=== PATIENT | male | born 1940 | race Caucasian/White ===

== ENCOUNTER 2020-05-31 16:53 | Emergency (ER) | payer MEDICARE ==
[2020-05-31 17:07] VITALS: RESP 18; TEMP 98.2
--- NOTE | 2020-05-31 17:15 | ED ---
Upper Extremity HPI - General Chief Complaint: Extremity Injury, Upper Stated Complaint: L Shoulder Dislocation Time Seen by Provider: 05/31/20 17:07 Source: patient, RN notes reviewed Mode of arrival: ambulatory Limitations: no limitations - History of Present Illness Initial Comments: 80-year-old male presents emergency Department with chief complaint left shoulder pain. Patient states he was removing his shirt states he felt a pop. Patient states she's been unable to move it secondary to pain ever since. Patient had no prior surgeries no major issues with the shoulder in past. Patient states IS LOCATED AT HIS JOINT. NO HEADACHE NO DIZZINESS NO PARESTHESIAS NO CHEST PAIN OR SHORTNESS BREATH - Related Data Allergies Allergy/AdvReac Type Severity Reaction Status Date / Time oxytetracycline Allergy Rash/Hives Verified 05/31/20 17:04 [From Terramycin] Penicillins Allergy Rash/Hives Verified 05/31/20 17:04 streptomycin Allergy Rash/Hives Verified 05/31/20 17:04 Review of Systems ROS Statement: Those systems with pertinent positive or pertinent negative responses have been documented in the HPI. ROS Other: All systems not noted in ROS Statement are negative. Past Medical History Past Medical History: Diabetes Mellitus History of Any Multi-Drug Resistant Organisms: None Reported Additional Past Surgical History / Comment(s): heart valve Past Psychological History: No Psychological Hx Reported Smoking Status: Never smoker Past Alcohol Use History: None Reported Past Drug Use History: None Reported General Exam Limitations: no limitations General appearance: alert, in no apparent distress Head exam: Present: atraumatic, normocephalic, normal inspection Neck exam: Present: normal inspection, full ROM. Absent: tenderness, meningismus, lymphadenopathy Respiratory exam: Present: normal lung sounds bilaterally. Absent: respiratory distress, wheezes, rales, rhonchi, stridor Cardiovascular Exam: Present: regular rate, normal rhythm, normal heart sounds. Absent: systolic murmur, diastolic murmur, rubs, gallop, clicks Extremities exam: Present: other (Limited range of motion left shoulder secondary pain there seems to be slightly high riding left shoulder, neurovascular intact skimmer strength equal bilaterally, cap refill less than 2 seconds no elbow tenderness) Course Vital Signs 05/31/20 05/31/20 17:04 17:48 Temperature 98.2 F Pulse Rate 61 74 Respiratory 18 18 Rate Blood Pressure 217/70 210/76 O2 Sat by Pulse 98 98 Oximetry - Reevaluation(s) Reevaluation #1: 05/31/20 17:15 Patient is moderately hypertensive blood pressure will be rechecked, x-rays were ordered. Medical Decision Making - Medical Decision Making 80-year-old male presented for left shoulder pain. There is no dislocation. Patient may have strained the left shoulder related to rotator cuff. Patient was placed a sling will follow-up with his orthopedic surgeon Dr. Mukherjee. Daniel jeffrey's blood pressure was elevated though is not taking has nighttime blood pressure medication. Patient was provided this. Recommended to stay but states he feels comfortable with discharge. Disposition Clinical Impression: Strain of shoulder Disposition: HOME SELF-CARE Condition: Stable Instructions (If sedation given, give patient instructions): Rotator Cuff Injury (ED) Additional Instructions: Please return to the Emergency Department if symptoms worsen or any other concerns. Is patient prescribed a controlled substance at d/c from ED?: No Referrals: None,Stated [Primary Care Provider] - 1-2 days Time of Disposition: 18:15
--- NOTE | 2020-05-31 18:03 | XR ---
EXAMINATION TYPE: XR shoulder complete LT DATE OF EXAM: 05/31/2020 COMPARISON: NONE HISTORY: Pain TECHNIQUE: 3 views FINDINGS: I see no fracture nor dislocation. Joint spaces are normal. There is minor spurring at the glenohumeral joint. 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 IMPRESSION: No acute abnormality of the left shoulder.
[2020-05-31] MEDS ORDERED: METOPROLOL TARTRATE 50 MG TAB PO STA (18:09)
[2020-05-31] MEDS ORDERED: IBUPROFEN 600 MG TAB PO STA (18:09)
[2020-05-31 18:39] VITALS: BP 210/78; PULSE 60
== END 2020-05-31 18:57 | disposition home or self-care (01) ==
LOC: EC 16:53
DX: S46.912A Strain of unspecified muscle, fascia and tendon at shoulder and upper arm level, left arm, initial encounter (principal); Z88.1 Allergy status to other antibiotic agents; Z88.0 Allergy status to penicillin; X50.9XXA Other and unspecified overexertion or strenuous movements or postures, initial encounter; Y93.89 Activity, other specified
CPT/HCPCS: 99283